=== PATIENT | male | born 1955 | race Caucasian/White ===

== ENCOUNTER 2020-11-13 09:37 | Emergency (ER) | payer OTHER, SELFPAY ==
[2020-11-13 09:38] VITALS: BP 117/81; PULSE 56; RESP 16; TEMP 35.8; O2SAT 99; BMI 29.7
--- NOTE | 2020-11-13 09:54 | RAD_ITS ---
STUDY: X-RAY CHEST REASON FOR EXAM: Male, 65 years old. Altered mental status TECHNIQUE: Frontal view of the chest COMPARISON: 12/16/12 FINDINGS: The lungs are clear. There are no pleural effusions. There is no pneumothorax. The heart is normal in size. The visualized osseous structures are within normal limits. RAD/Chest 1 View IMPRESSION: No acute thoracic pathology. Electronically Signed: Dar Escobar MD at 10:57 EDT Tel , Service support ,
--- NOTE | 2020-11-13 09:54 | EKG12_ITS ---
Test Reason : L FACIAL WEAKNESS Blood Pressure : / mmHG Vent. Rate : 056 BPM Atrial Rate : 056 BPM P-R Int : 150 ms QRS Dur : 092 ms QT Int : 446 ms P-R-T Axes : 000 067 051 degrees QTc Int : 430 ms Sinus bradycardia Otherwise normal ECG Confirmed by JOMAR DELVALLE, DEX ([id number]), editor producer SHIRLEY BRUSH ([id number]) on 11/16/2020 12:45:33 PM Referred By: MARTIN Confirmed By:DEX HADLEY MD
--- NOTE | 2020-11-13 09:54 | CT_ITS ---
STUDY: CT BRAIN WITHOUT CONTRAST REASON FOR EXAM: Male, 65 years old. Altered mental status. RADIATION DOSAGE (If Supplied By Facility): CTDIvol = ( 45 ) mGy, DLP = ( 813 ) mGycm TECHNIQUE: Transaxial CT imaging of the brain was performed without administration of intravenous contrast material. Individualized dose optimization techniques were used for this CT. COMPARISON: 12/16/12 FINDINGS: There is no acute bleed or infarct. There are normal white matter tracts. The ventricles are normal in configuration. There is no hydrocephalus. There is mild mucosal hypertrophy in the ethmoid and maxillary sinuses. The mastoid air cells are well aerated. There is no skull fracture. CT/STROKE Brain/Head without Cont IMPRESSION: No acute intracranial abnormality. Mild sinusitis. N.B. : The above Results were Read Back by Dar Escobar MD to MARINA SOUZA MD, and understanding confirmed on 11/13/2020 10:37:27 (ET). Electronically Signed: Dar Escobar MD at 10:38 EDT Tel , Service support ,
--- NOTE | 2020-11-13 09:55 | ED.VIS.STROK ---
HPI History of Present Illness Chief Complaint: Neuro S/Sx Informant: patient Narrative Narrative: Patient presents with left-sided facial weakness now going on his fourth day. Symptoms have not progressed. He actually thinks he may have had slightly more weakness yesterday than today. No trauma or injury. No numbness tingling weakness in any other area. No headaches. He does have some discomfort from the base of his ear along his left jaw. No chest pain or pressure. 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 He also started with the pain along his ear and left jaw about 2 days prior to the weakness. But he denies headache. He has never developed a rash at any time. There is no itching or burning. He states it is more of an ache. Nothing specifically makes his symptoms better or worse. Patient denies any active medical problems. He has had prior Morillo's palsy. No current medications No allergies No recent surgeries Occasional smoker PFSH PFSH Home Medications prednisone 60 mg PO DAILY #23 tab 11/13/20 [Rx Last Taken Unknown] valacyclovir [Valtrex] 1,000 mg PO BID #14 tab 11/13/20 [Rx Last Taken Unknown] Allergy/AdvReac Type Severity Reaction Status Date / Time No Known Allergies Allergy Verified 09/28/16 22:20 Social History Smoking Status: Never smoker ROS ROS ED Constitutional Constitutional ED: Denies chills or fever(s) Eyes Eyes: Denies blurry vision, change in vision or diplopia ENT ENT ED: Reports ear pain; Denies rhinorrhea or sore throat Cardiovascular Cardiovascular: Denies chest pain or palpitations Respiratory/Chest Respiratory/Chest: Denies cough or dyspnea Gastrointestinal Gastrointestinal: Denies abdominal pain, nausea or vomiting Musculoskeletal Musculoskeletal: Denies back pain or neck pain Integumentary Denies rash Neurologic Neurologic: Reports weakness; Denies headache(s) Psychiatric Psychiatric: Denies depression Hematologic/Lymphatic Hematologic/Lymphatic: Denies easy bruising Allergic/Immunologic Allergic/Immunologic ED: Denies urticaria EXAM Physical Exam Const Vital Signs: 11/13/20 09:38 11/13/20 10:03 11/13/20 10:42 Temperature 96.4 F L Temperature Source Temporal Pulse Rate 56 L 54 L 54 L Respiratory Rate 16 18 16 Blood Pressure 117/81 H 120/78 104/82 H Blood Pressure Mean 93 92 89 Pulse Ox 99 97 96 Oxygen Delivery Method Room Air Room Air 11/13/20 11:00 11/13/20 11:46 Temperature Temperature Source Pulse Rate 57 L 57 L Respiratory Rate 16 15 Blood Pressure 104/82 H 123/64 H Blood Pressure Mean 89 83 Pulse Ox 97 96 Oxygen Delivery Method Room Air Room Air Positive well nourished and well developed General Appearance ED: well developed HEENT HEENT Narrative: I see no rash or vesicles at all. None in or around the pinna. There is some cerumen in the ear but no inflammation. There is a clear left-sided facial weakness and droop. However, this relatively spares the forehead rather than involving it significantly. atraumatic Nose: other Eyes PERRL and EOMs intact bilaterally General Eye ED: Negative for pale conjunctiva or scleral icterus Neck no JVD Chest Wall inspection of chest normal Resp normal respiratory effort Cardio Negative for no murmurs Rate: regular rate Rhythm: regular rhythm GI normal to inspection, nondistended, normoactive bowel sounds, soft to palpation and non-tender Extremity normal to inspection General Extremety ED: Negative for tenderness Neuro oriented x3 Neuro Narrative: Patient has an NIH of 1 for some left-sided facial droop. Sensorium / Orientation: alert Skin no wounds Lesions: no lesions Rashes: no rashes STROKE Vital Signs/Narrative: Vital Signs Pulse Resp BP Pulse Ox 11/13/20 11:46 57 L 15 123/64 H 96 NIHSS Initial: 1a Level of Consciousness: 0 1b LOC Questions (Score 2 if aphasic/stupor): 0 1c LOC Commands (Only score 1st attempt): 0 2 Best Gaze (If aphasic, use reflexive mvmts.): 0 3 Visual: 0 4 Facial Palsy: 1 5 Motor Arm Right (UN = amputation/fusion): 0 5 Motor Arm Left: 0 6 Motor Leg Right: 0 6 Motor Leg Left: 0 7 Limb ataxia (Only + if out of proportion): 0 8 Sensory (Aphasia/stupor=0 or 1, coma=2): 0 9 Best Language: 0 10 Dysarthria (mute, coma=2, intubated=UN): 0 11 Extinction and Inattention (only scored if +): 0 Total Score: 1 MDM MDM MDM Narrative Medical decision making narrative: When I saw the patient's complaint, I was suspecting Susan Sweet syndrome. With the earache and left facial weakness I thought this would be likely. However, he does not and has never had a rash. And his forehead is relatively spared rather than involved. For this reason stroke work-up is initiated. However, the patient would not be a TPA candidate based on his low NIH and the in excess of 3-day since the onset of symptoms. We had teleneurology see the patient. They had similar concerns. They thought that this could be stroke versus a an atypical Morillo's palsy. The clinically strongly suspected this was Morillo's as he has had the symptoms in the past on the other side. They recommended sending off sed rate and CRP. CRP is normal. They also recommended Lyme titer which we will likely not get back today. They recommended an MRI. As long as we do not find significant stroke tumor etc. he could go home and be treated as Morillo's palsy. Lab Data Attestation: I reviewed the patient's lab results. Labs: Laboratory Results - last 24 hr 11/13/20 11/13/20 11/13/20 10:09 10:09 10:09 WBC 5.1 RBC 4.66 Hgb 14.1 Hct 42.5 MCV 91.2 MCH 30.3 MCHC 33.2 RDW Std Deviation 40.7 RDW Coeff of Anne 12.4 Plt Count 261 MPV 9.1 Immature Gran % (Auto) 0.200 Neut % (Auto) 53.2 Lymph % (Auto) 25.3 [place] % (Auto) 12.2 H Eos % (Auto) 8.3 H Baso % (Auto) 0.8 Absolute Neuts (auto) 2.7 Absolute Lymphs (auto) 1.29 Nucleated RBC % 0 ESR PT 12.6 INR 1.0 APTT 27.4 Sodium 137 Potassium 3.9 Chloride 106 Carbon Dioxide 27.0 Anion Gap 4 L BUN 16 Creatinine 0.93 Estim Creat Clear Calc 90.69 Est GFR (MDRD) Af Amer 106 Est GFR (MDRD) Non-Af 87 BUN/Creatinine Ratio 17.3 Glucose 106 Calcium 8.6 Troponin I High Sens 3.6 C-React Prot Ext Range 11/13/20 11/13/20 11:40 11:40 WBC RBC Hgb Hct MCV MCH MCHC RDW Std Deviation RDW Coeff of Anne Plt Count MPV Immature Gran % (Auto) Neut % (Auto) Lymph % (Auto) [place] % (Auto) Eos % (Auto) Baso % (Auto) Absolute Neuts (auto) Absolute Lymphs (auto) Nucleated RBC % ESR 5 PT INR APTT Sodium Potassium Chloride Carbon Dioxide Anion Gap BUN Creatinine Estim Creat Clear Calc Est GFR (MDRD) Af Amer Est GFR (MDRD) Non-Af BUN/Creatinine Ratio Glucose Calcium Troponin I High Sens C-React Prot Ext Range < 2.90 Radiography Diagnostic Testing: Radiology Impression Brain CT 11/13/20 09:54 IMPRESSION: No acute intracranial abnormality. Mild sinusitis. N.B. : The above Results were Read Back by Dar Escobar MD to MARINA ANTHONY MD, and understanding confirmed on 11/13/2020 10:37:27 (ET). Electronically Signed: Dar Escobar MD at 10:38 EDT Tel , Service support , ADDENDUM: 11/13/20 1045 IMPRESSION: No acute intracranial abnormality. Mild sinusitis. N.B. : The above Results were Read Back by Dar Escobar MD to MARINA ANTHONY MD, and understanding confirmed on 11/13/2020 10:37:27 (ET). Electronically Signed: Dar Escobar MD at 10:38 EDT Tel , Service support , Chest X-Ray 11/13/20 09:54 IMPRESSION: No acute thoracic pathology. Electronically Signed: Dar Escobar MD at 10:57 EDT Tel , Service support , Brain MRI 11/13/20 11:36 IMPRESSION: Normal unenhanced and enhanced MRI of the brain. Electronically Signed: Evan Nash DO at 13:24 EDT Tel , Service support , EKG Initial EKG: Comments: EKG done as part of neurologic work-up read by me shows normal sinus rhythm with bradycardic rate at 56. Discharge Plan Triage Chief Complaint: Neuro S/Sx ED Provider: Marina Anthony Dx/Rx/DC Orders Clinical Impression: Morillo's palsy Instructions: ED Morillo's Palsy Prescriptions: New valacyclovir [Valtrex] 1 gram tablet 1,000 mg PO BID Qty: 14 RF: 0 prednisone 20 mg tablet 60 mg PO DAILY Qty: 23 RF: 0 Primary Care Provider: Ham Kumari Referrals: Ham Kumari DO [Primary Care Provider] - 3-5 Days Activity Restrictions/Additional Instructions: Make sure you taped eyes shut at any time sleeping to avoid drying which could lead to permanent scarring and blindness. Disposition Disposition: Home, Self Care
[2020-11-13 10:03] VITALS: BP 120/78; PULSE 54; RESP 18; O2SAT 97; O2SAT 98
[2020-11-13 10:19] LABS: Absolute Lymphocyte Count 1.29 X10^3/uL (0.83-4.51); Absolute Neutrophil Count 2.7 X10^3/uL (2.0-7.7); Basophil# 0.04 X10^3/uL; Basophil% 0.8 % (0-1); Eosinophil# 0.42 X10^3/uL; Eosinophils% 8.3 % (0-5); Hematocrit 42.5 % (40-54); Hemoglobin 14.1 g/dL (13.0-16.5); Lymphocyte # 1.29 X10^3/ul (0.83-4.51); Lymphocyte % 25.3 % (19-41); Mean Corp Hgb Conc 33.2 g/dL (32-36); Mean Corpuscular Hgb 30.3 pg (27.0-32.0); Mean Corpuscular Volume 91.2 fL (80-94); Mean Platelet Vol. 9.1 fl (6.2-12.0); Monocyte# 0.62 X10^3/uL; Monocyte% 12.2 % (0-10); NRBC Flagged by Analyzer 0 % (0-5); Neutrophil # 2.71 X10^3/uL (2.7-7.7); Neutrophil % 53.2 % (47-70); Platelet Count 261 K/mm3 (150-450); RBC Distribution Width CV 12.4 % (11.6-14.6); RBC Distribution Width SD 40.7 fl (35.1-43.9); Red Blood Count 4.66 M/mm3 (4.6-6.2); White Blood Count 5.1 K/mm3 (4.4-11.0)
[2020-11-13 10:30] LABS: Prothrombin Time (Protime)PT. 12.6 SECONDS (11.7-14.9)
[2020-11-13 10:31] LABS: Partial Thromboplast Time 27.4 Seconds (24.1-36.2)
[2020-11-13 10:38] LABS: Anion Gap 4 (5-15); BUN 16 mg/dL (7-18); BUN/Creat Ratio 17.3 RATIO (10-20); Calcium,Total 8.6 mg/dL (8.5-10.1); Chloride 106 mmol/L (98-107); Creatinine, Serum 0.93 mg/dL (0.70-1.30); EST Glomerular Filtration Rate 87 mL/min (>60); Est Glom Filt Rate - Afr Amer 106 mL/min (>60); Estimated Creatinine Clearance 90.69 ml/min; Glucose 106 mg/dL (74-106); Potassium 3.9 mmol/L (3.5-5.1); Sodium Level 137 mmol/L (136-145); Troponin-I HS 3.6 pg/mL (3.0-78.5)
[2020-11-13 10:42] VITALS: BP 104/82; PULSE 54; RESP 16; O2SAT 96; BMI 30.8
[2020-11-13 11:00] VITALS: BP 104/82; PULSE 57; RESP 16; O2SAT 97
--- NOTE | 2020-11-13 11:36 | MRI_ITS ---
STUDY: MRI BRAIN WITH AND WITHOUT CONTRAST REASON FOR EXAM: Male, 65 years old. Left facial weakness, stroke/MS/tumor/Morillo''s palsy COMPARISON: Previous CT scan obtained on 05/22/2020 TECHNIQUE: An MRI was performed utilizing axial diffusion and ADC map images followed by axial T2 and FLAIR and gradient echo images followed by sagittal and axial T1 weighted images. Sagittal T2-weighted images were obtained along with axial postcontrast T1-weighted images of the head. FINDINGS: The diffusion weighted axial images and ADC map images of the head show no evidence of restricted diffusion. The brandy, medulla and midbrain and cerebellum appear to be normal. The ventricles and sulci are normal in size and shape. The cerebral hemispheres appear to be normal.The basal ganglia appear to be normal. No enhancing masses or lesions are seen. The gradient echo axial images are normal. No evidence of a Chiari I malformation is identified. The V4 segments of the vertebral artery, the basilar artery, the posterior cerebral arteries, the cavernous and supraclinoid carotid arteries, and the M1 segments of the middle cerebral arteries are all normal The orbits including the optic nerves and optic chiasm appear normal. The pituitary and pituitary infundibulum appear to be normal. fThe inner and outer tables of the skull are normal The frontal, ethmoid, maxillary, and sphenoid sinuses are normal. The mastoid air cells are normal. IMPRESSION: Normal MRI of the head. COMPARISON: None. FINDINGS: Normal size of the ventricles and extra-axial spaces for the patient''s age. Normal white matter tracts of the supratentorial brain. Normal bilateral basal ganglia. Normal thalami. There is no extra-axial fluid accumulation. Normal flow voids within the major intracranial circulation suggesting patency by spin echo criteria. Normal venous enhancement. There is no enhancing intra-axial or extra-axial abnormality. Normal sella turcica, pituitary gland, infundibular stalk, optic chiasm and hypothalamus. Normal tectal plate and pineal gland. Normal midbrain, brandy and medulla. Normal cerebellum. Normal basal cisterns. Normal bilateral temporal bones. Normal bilateral internal auditory canals. No demonstrated orbital abnormality, within the constraints of a routine brain study. Normal visualized paranasal sinuses. Normal calvarium and skull base. Normal visualized soft tissue structures. Normal visualized upper cervical spine. MRI/Brain W/WO Contrast IMPRESSION: Normal unenhanced and enhanced MRI of the brain. Electronically Signed: Evan Nash DO at 13:24 EDT Tel , Service support ,
[2020-11-13] MEDS: predniSONE 20 MG Tablet 60 MG PO (11:45)
[2020-11-13 11:46] VITALS: BP 123/64; PULSE 57; RESP 15; O2SAT 96
[2020-11-13 11:46] LABS: Lyme Ab Screen Interpretation REF LAB
[2020-11-13 11:55] LABS: Erythrocyte Sedimentation Rate 5 mm/hr (0-20)
[2020-11-13 12:05] LABS: CRP < 2.90 mg/L (0.0-3.0)
[2020-11-13] MEDS: Acyclovir 200 MG Capsule 400 MG PO (12:07)
--- NOTE | 2020-11-13 12:15 | ED.RN ---
PT LEFT FOR MRI AT 1200, NO NIHSS COMPLETED SINCE THAT TIME.
[2020-11-13 15:54] VITALS: BP 122/89
[2020-11-14 19:38] LABS: Lyme Scn Total Ab w/Rflx <0.91 ISR (0.00-0.90)
== END 2020-11-13 16:03 | disposition home or self-care (01) ==
PROVIDERS: Emergency Provider Emergency Medicine; PCP Student in an Organized Health Care Education/Training Program
DX: G51.0 Bell's palsy (principal)
CPT/HCPCS: 70450; 70553; 71045; 80048; 84484; 85025; 85610; 85652; 85730; 86140; 86618; 93005; 99285; A9575; A4216